=== PATIENT | female | born 1995 | race Caucasian/White ===

== ENCOUNTER 2020-04-15 22:07 | Emergency (ER) | payer OTHER ==
[~2020-04-15] VITALS: Ht 167.6 cm; Wt 68.0 kg
[~2020-04-15 22:07] MED LIST: CYCL5POW MC
[2020-04-15 22:28] VITALS: BP 128/84
[2020-04-15] MEDS ORDERED: METOCLOPRAMIDE HCL 10 MG/2 ML VIAL. ONE (22:44)
[2020-04-15] MEDS ORDERED: IV NORMAL SALINE 1,000ML 1,000 ML IV ONE (22:45)
[2020-04-15] MEDS ORDERED: KETOROLAC 30 MG/ML VIAL. IVP ONE (23:00)
[2020-04-15] MEDS ORDERED: METOCLOPRAMIDE HCL 10 MG/2 ML VIAL. IVP ONE (23:00)
[2020-04-15] MEDS ORDERED: IOHEXOL 300 MG/ML 75 ML VIAL. IV ONE (23:00)
[2020-04-15 23:07] LABS: BASO # 0.1 x10^3/uL (0.0-0.2); BASO % 1 % (0-3); EOS # 0.3 x10^3/uL (0.0-0.7); EOS % 3 % (0-3); HEMATOCRIT 38.3 % (36.0-47.0); HEMOGLOBIN 12.2 g/dL (12.0-15.5); LYMPH # 3.4 x10^3/uL (1.0-4.8); LYMPH % 38 % (24-48); MEAN CORPUSCULAR HEMOGLOBIN 22 pg (25-35); MEAN CORPUSCULAR HGB CONC 32 g/dL (31-37); MEAN CORPUSCULAR VOLUME 69 fL (79-100); MONO # 0.7 x10^3/uL (0.0-1.1); MONO % 8 % (0-9); NEUT # 4.4 x10^3uL (1.8-7.7); NEUT % 50 % (31-73); PLATELET COUNT 210 x10^3/uL (140-400); RED BLOOD COUNT 5.55 x10^6/uL (3.50-5.40); WHITE BLOOD COUNT 8.9 x10^3/uL (4.0-11.0)
[2020-04-15] MEDS ORDERED: CONTRAST GIVEN. MC PRN (23:15)
[2020-04-15 23:17] LABS: CALCIUM 9.4 mg/dL (8.5-10.1); CREATININE 0.9 mg/dL (0.6-1.0); GFR 75.7; POTASSIUM 3.3 mmol/L (3.5-5.1)
[2020-04-15 23:21] LABS: HYPOCHROMIA SLIGHT; MICROCYTOSIS SLIGHT; PLT ESTIMATE ADEQUATE (ADEQUATE)
--- NOTE | 2020-04-15 23:23 | PHYS DOC ---
Past History Past Medical History: Ovarian Cyst Past Surgical History: Tubal ligation, Other Additional Past Surgical Histo: UTERINE ABLATION, WISDOM TEETH, LAPROSCOPIC Alcohol Use: Rarely Drug Use: None Adult General Chief Complaint Chief Complaint: PAIN CONTROL HPI HPI Patient is 25-year-old female who presents to the emergency room complaining of right-sided pelvic pain that is been ongoing for quite some time. She is unable to tell me exactly when it started but states that it has been months. She is seeing her CONDITIONING COACH for this who states there is nothing that they can do about it they are sending her to a specialist at . She states over the last week the pain is been worse than usual. She states that she has known ovarian cysts which her doctors believe is causing her pain. She has had her tubes tied and states there is no way that she could be . She had a lot of pain with defecation today which is a large reason as to why she came in tonight Review of Systems Review of Systems General: Denies fever, chills, sweats, fatigue Eyes: Denies drainage, blurred vision, eye redness HENT: Denies rhinorrhea, sore throat, earache Respiratory: Denies cough, shortness of breath, wheezing Cardiac: Denies edema, palpitations, chest pain GI: Reports pelvic pain and nausea. Denies vomiting, diarrhea, constipation MSK: Denies back pain, neck pain Skin: Denies rash, jaundice Neuro: Denies headache, dizziness Psychiatric: Denies SI/HI Current Medications Current Medications Current Medications Medications (Trade) Dose Ordered Sig/Giana Start Time Stop Time Status Last Admin Dose Admin Info (Do NOT chart on this entry -- for MONITORING) 1 each PRN DAILY PRN 04/15/20 23:15 04/17/20 23:14 Iohexol (Omnipaque 300 Mg/ml) 75 ml 1X ONCE 04/15/20 23:00 04/15/20 23:02 DC Ketorolac Tromethamine (Toradol 30mg Vial) 30 mg 1X ONCE 04/15/20 23:00 04/15/20 23:02 DC 04/15/20 22:51 30 MG Metoclopramide HCl (Reglan Vial) 10 mg STK-MED ONCE 04/15/20 22:44 04/15/20 22:44 DC Sodium Chloride 1,000 ml @ 1,000 mls/hr 1X ONCE 04/15/20 22:45 04/15/20 23:44 04/15/20 22:51 1,000 MLS/HR Allergies Allergies Allergies Coded Allergies Type Severity Reaction Last Updated Verified ondansetron Allergy Unknown MIGRAINES 04/15/20 Yes Physical Exam Physical Exam General: Awake, alert, NAD. Well Nourished, well hydrated. Cooperative HEENT: Atraumatic, EOMI, PERRL, airway patent, moist oral mucosa Neck: Supple, trachea midline Respiratory: CTA bilaterally, normal effort, no wheezing/crackles CV: RRR, no murmur, cap refill <2 GI: Soft, nondistended, nontender, no masses : Declines pelvic exam MSK: No obvious deformities Skin: Warm, dry, intact Neuro: A&O x3, speech NL, sensory and motor grossly intact, no focal deficits Psych: Normal affect, normal mood, not suicidal or homicidal Current Patient Data Vital Signs Vital Signs Date Time Temp Pulse Resp B/P (MAP) Pulse Ox O2 Delivery O2 Flow Rate FiO2 04/15/20 22:28 97.8 85 18 128/84 (99) 98 Room Air Lab Results Laboratory Tests Test 04/15/20 22:55 White Blood Count 8.9 x10^3/uL (4.0-11.0) Red Blood Count 5.55 x10^6/uL (3.50-5.40) H Hemoglobin 12.2 g/dL (12.0-15.5) Hematocrit 38.3 % (36.0-47.0) Mean Corpuscular Volume 69 fL (79-100) L Mean Corpuscular Hemoglobin 22 pg (25-35) L Mean Corpuscular Hemoglobin Concent 32 g/dL (31-37) Red Cell Distribution Width 16.0 % (11.5-14.5) H Platelet Count 210 x10^3/uL (140-400) Neutrophils (%) (Auto) 50 % (31-73) Lymphocytes (%) (Auto) 38 % (24-48) Monocytes (%) (Auto) 8 % (0-9) Eosinophils (%) (Auto) 3 % (0-3) Basophils (%) (Auto) 1 % (0-3) Neutrophils # (Auto) 4.4 x10^3uL (1.8-7.7) Lymphocytes # (Auto) 3.4 x10^3/uL (1.0-4.8) Monocytes # (Auto) 0.7 x10^3/uL (0.0-1.1) Eosinophils # (Auto) 0.3 x10^3/uL (0.0-0.7) Basophils # (Auto) 0.1 x10^3/uL (0.0-0.2) Platelet Estimate Pending Sodium Level 138 mmol/L (136-145) Potassium Level 3.3 mmol/L (3.5-5.1) L Chloride Level 102 mmol/L (98-107) Carbon Dioxide Level 27 mmol/L (21-32) Anion Gap 9 (6-14) Blood Urea Nitrogen 14 mg/dL (7-20) Creatinine 0.9 mg/dL (0.6-1.0) Estimated GFR (Cockcroft-Gault) 75.7 Glucose Level 82 mg/dL (70-99) Calcium Level 9.4 mg/dL (8.5-10.1) EKG EKG [] Radiology/Procedures Radiology/Procedures [] Heart Score Risk Factors: Risk Factors: DM, Current or recent (<one month) smoker, HTN, HLP, family history of CAD, obesity. Risk Scores: Risk Factors: DM, Current or recent (<one month) smoker, HTN, HLP, family history of CAD, obesity. Course & Med Decision Making Course & Med Decision Making Pertinent Labs and Imaging studies reviewed. (See chart for details) Patient is 25-year-old female presents to the emergency room with right pelvic pain that is worse than her typical chronic pain. Given her known history of ovarian cyst will order an ultrasound to rule out torsion. We will also do a pelvic CT to rule out any rectal abnormalities as patient is having pain with defecation. Patient was given Reglan and Toradol for symptoms. Shortly thereafter she requested to leave AGAINST MEDICAL ADVICE. She states that the medicine made her feel anxious and that she would like to go home. Patient has requested to leave AGAINST MEDICAL ADVICE. I have discussed the benefits of staying for a full work up and the patient would like to leave. I discussed the risks of leaving including but not limited to , permenant end-organ damage, worsening of condition and patient stated understanding. Patient signed out against medical advice. Dragon Disclaimer Dragon Disclaimer This electronic medical record was generated, in whole or in part, using a voice recognition dictation system. Departure Departure: Impression: Primary Impression: Pelvic pain Disposition: 07 AMA/BERTA/PAULIE Condition: STABLE Referrals: PCP,UNKNOWN (PCP) LAZ DELACRUZ MD Apr 15, 2020 23:23
== END 2020-04-15 23:18 | disposition left against medical advice (07) ==
LOC: ER 22:07
DX: R10.2 Pelvic and perineal pain (principal); R11.0 Nausea; Z98.51 Tubal ligation status; Z88.8 Allergy status to other drugs, medicaments and biological substances
CPT/HCPCS: 36415; 80048; 85025; 96361; 96374; 96375; 99284; J1885; J2765; J7030

== ENCOUNTER 2020-11-26 22:55 | Emergency (ER) | payer OTHER ==
[~2020-11-26] VITALS: Ht 167.6 cm; Wt 68.0 kg
[2020-11-27 00:40] VITALS: BP 121/74
--- NOTE | 2020-11-27 01:06 | PHYS DOC ---
Past History Past Medical History: Ovarian Cyst Past Surgical History: Tubal ligation, Other Additional Past Surgical Histo: UTERINE ABLATION, WISDOM TEETH, LAPROSCOPIC Alcohol Use: Rarely Drug Use: None General Adult EDM: Chief Complaint: FATIGUE HPI: HPI: ".. I am feeling tired.. I want my iron levels checked...".. I" I don't feel like myself..."" Get tired easy.." Patient is a 25 year old female who presents with above hx and complaints of fatigue. Patient has previous history of anemia and iron deficiency. Patient states her symptoms are similar to prior episodes of anemia. Patient even had history of uterine ablation to control her blood loss from menstruation. Patient has had also previous laparoscopic evaluations for intermittent abdomen pain. Patient has a past history of ovarian cyst. Has had tubal ligation's. Patient in past has had constipation issues. Patient presents tonight with vague symptoms of fatigue and suspect she is anemic again. Patient denies any travel. Patient denies any specific ill contacts. No history of trauma. No history of fever or chills. Review of Systems: Review of Systems: Constitutional: Denies fever or chills Eyes: Denies change in visual acuity HENT: Denies nasal congestion or sore throat Respiratory: Denies cough or shortness of breath Cardiovascular: Denies chest pain or edema GI: Denies abdominal pain, nausea, vomiting, bloody stools or diarrhea : Denies dysuria Musculoskeletal: Denies back pain or joint pain . Complains of generalized fatigue Integument: Denies rash Neurologic: Denies headache, focal weakness or sensory changes Endocrine: Denies polyuria or polydipsia Lymphatic: Denies swollen glands Psychiatric: Denies depression or anxiety Family History: Family History: Noncontributory to presentation Current Medications: Current Meds: See nursing for home meds Allergies: Allergies: Allergies Coded Allergies Type Severity Reaction Last Updated Verified ondansetron Allergy Unknown MIGRAINES 04/15/20 Yes Physical Exam: PE: Constitutional: no acute distress, non-toxic appearance. [] HENT: Normocephalic, atraumatic, bilateral external ears normal, oropharynx moist, no oral exudates, nose normal. [] Eyes: PERRLA, EOMI, conjunctiva normal, no discharge. [] Neck: Normal range of motion, no tenderness, supple, no stridor. [] Cardiovascular:Heart rate regular rhythm, no murmur [] Lungs & Thorax: Bilateral breath sounds equal apex on auscultation [] Abdomen: Bowel sounds normal, soft, no tenderness, no masses, no pulsatile masses. Old surgery scars. Skin: Warm, dry, no erythema, no rash. [] Back: No tenderness, no CVA tenderness. [] Extremities: No tenderness, no cyanosis, no clubbing, ROM intact, no edema. [] Neurologic: Alert and oriented X 3, normal motor function, normal sensory function, no focal deficits noted. [] Psychologic: Affect anxious, judgement normal, mood normal. [] EKG: EKG: [] Radiology/Procedures: Radiology/Procedures: [] Heart Score: C/O Chest Pain: N/A Risk Factors: Risk Factors: DM, Current or recent (<one month) smoker, HTN, HLP, family history of CAD, obesity. Risk Scores: Score 0 - 3: 2.5% MACE over next 6 weeks - Discharge Home Score 4 - 6: 20.3% MACE over next 6 weeks - Admit for Clinical Observation Score 7 - 10: 72.7% MACE over next 6 weeks - Early Invasive Strategies Course & Med Decision Making: Course & Med Decision Making Pertinent Labs and Imaging studies reviewed. (See chart for details) Patient push high potassium foods. Patient follow-up with repeat potassium level. Patient push fruit juices. Patient return if any concerns. Patient 10- year her iron supplementation. Follow-up primary care. Review ED work-up. Impression: 1. Hypokalemia 2.8 2. Anemia hemoglobin 11.5 with microcytosis and hypochromia 3. Drug screen positive for marijuana [] Dragon Disclaimer: Dragon Disclaimer: This electronic medical record was generated, in whole or in part, using a voice recognition dictation system. Departure Departure: Referrals: PCP,UNKNOWN (PCP) Dragon Disclaimer This chart was dictated in whole or in part using Voice Recognition software in a busy, high-work load, and often noisy Emergency Department environment. It may contain unintended and wholly unrecognized errors or omissions. AMANDO MICHAEL MD Nov 27, 2020 01:06
[2020-11-27] MEDS ORDERED: POTASSIUM CHLORIDE 20 MEQ TABLET.ER. PO ONE (02:22)
[2020-11-27] MEDS ORDERED: MAGNESIUM HYDROXIDE 2,400 MG/30 ML ORAL.SUSP. ONE (02:22)
[2020-11-27 08:09] LABS: BILIRUBIN,URINE NEG (NEG); CLARITY,URINE CLEAR; COLOR,URINE YELLOW; GLUCOSE,URINE NEG (NEG); NITRITE,URINE NEG (NEG); RBC,URINE 0 /HPF (0-2)
[2020-11-27 08:10] LABS: BACTERIA,URINE FEW /HPF (0-FEW); SQUAMOUS EPITHELIAL CELL,UR FEW /LPF; WBC,URINE OCC /HPF (0-4)
[2020-11-27 08:12] LABS: U PREG PATIENT NEGATIVE (NEG)
[2020-11-27 08:16] LABS: AMPHETAMINE/METHAMPHETAMINE NEG (NEG); BARBITURATES NEG (NEG); BENZODIAZEPINES NEG (NEG); CANNABINOIDS POS (NEG); COCAINE NEG (NEG); METHADONE NEG (NEG); OPIATES NEG (NEG); PHENCYCLIDINE NEG (NEG)
[2020-11-27 09:07] LABS: BASO % 0 % (0-3); EOS % 0 % (0-3); HEMATOCRIT 44.1 % (36.0-47.0); HEMOGLOBIN 14.7 g/dL (12.0-15.5); LYMPH # 0.9 x10^3/uL (1.0-4.8); LYMPH % 5 % (24-48); MEAN CORPUSCULAR HEMOGLOBIN 30 pg (25-35); MEAN CORPUSCULAR HGB CONC 33 g/dL (31-37); MEAN CORPUSCULAR VOLUME 90 fL (79-100); MONO # 1.2 x10^3/uL (0.0-1.1); MONO % 7 % (0-9); NEUT # 15.4 x10^3uL (1.8-7.7); NEUT % 87 % (31-73); PLATELET COUNT 294 x10^3/uL (140-400); RED BLOOD COUNT 4.89 x10^6/uL (3.50-5.40); RED CELL DISTRIBUTION WIDTH 13.1 % (11.5-14.5); WHITE BLOOD COUNT 17.6 x10^3/uL (4.0-11.0)
[2020-11-27 10:11] LABS: ALBUMIN 4.2 g/dL (3.4-5.0); CALCIUM 8.9 mg/dL (8.5-10.1); CREATININE 0.8 mg/dL (0.6-1.0); DIRECT BILIRUBIN 0.2 mg/dL (0.0-0.2); GFR 86.7; TOTAL BILIRUBIN 0.8 mg/dL (0.2-1.0); TOTAL PROTEIN 7.7 g/dL (6.4-8.2)
[2020-11-27 10:15] LABS: POTASSIUM 2.8 mmol/L (3.5-5.1)
[2020-11-27 10:57] LABS: PLT ESTIMATE ADEQUATE (ADEQUATE)
[2020-11-27 10:58] LABS: HYPOCHROMIA MOD; MICROCYTOSIS MOD
== END 2020-11-27 02:51 | disposition home or self-care (01) ==
LOC: ER 22:55
DX: E87.6 Hypokalemia (principal); D50.9 Iron deficiency anemia, unspecified; Z98.51 Tubal ligation status; Z88.8 Allergy status to other drugs, medicaments and biological substances
CPT/HCPCS: 36415; 80048; 80076; 80307; 81001; 81025; 85025; 99283

== ENCOUNTER 2020-12-11 21:47 | Emergency (ER) | payer OTHER ==
[~2020-12-11] VITALS: Ht 167.6 cm; Wt 68.0 kg
[2020-12-11 22:37] LABS: BASO # 0.1 x10^3/uL (0.0-0.2); BASO % 1 % (0-3); EOS # 0.2 x10^3/uL (0.0-0.7); EOS % 2 % (0-3); HEMATOCRIT 36.5 % (36.0-47.0); HEMOGLOBIN 11.6 g/dL (12.0-15.5); LYMPH # 2.6 x10^3/uL (1.0-4.8); LYMPH % 30 % (24-48); MEAN CORPUSCULAR HEMOGLOBIN 22 pg (25-35); MEAN CORPUSCULAR HGB CONC 32 g/dL (31-37); MEAN CORPUSCULAR VOLUME 70 fL (79-100); MONO # 0.6 x10^3/uL (0.0-1.1); MONO % 7 % (0-9); NEUT # 5.3 x10^3uL (1.8-7.7); NEUT % 60 % (31-73); PLATELET COUNT 209 x10^3/uL (140-400); RED BLOOD COUNT 5.22 x10^6/uL (3.50-5.40); RED CELL DISTRIBUTION WIDTH 17.1 % (11.5-14.5); WHITE BLOOD COUNT 8.8 x10^3/uL (4.0-11.0)
[2020-12-11 22:49] LABS: ALBUMIN 4.1 g/dL (3.4-5.0); ALBUMIN/GLOBULIN RATIO 1.3 (1.0-1.7); CALCIUM 9.2 mg/dL (8.5-10.1); CREATININE 0.7 mg/dL (0.6-1.0); GFR 101.1; MAGNESIUM 2.1 mg/dL (1.8-2.4); POTASSIUM 3.7 mmol/L (3.5-5.1); TOTAL BILIRUBIN 0.5 mg/dL (0.2-1.0); TOTAL PROTEIN 7.2 g/dL (6.4-8.2)
[2020-12-11 22:55] LABS: BACTERIA,URINE 0 /HPF (0-FEW); BILIRUBIN,URINE NEG (NEG); CLARITY,URINE CLEAR; COLOR,URINE YELLOW; GLUCOSE,URINE NEG (NEG); NITRITE,URINE NEG (NEG); RBC,URINE 0 /HPF (0-2); SQUAMOUS EPITHELIAL CELL,UR FEW /LPF; WBC,URINE RARE /HPF (0-4)
[2020-12-11 22:57] LABS: HYPOCHROMIA SLIGHT; MICROCYTOSIS MOD; PLT ESTIMATE ADEQUATE (ADEQUATE)
[2020-12-11 22:58] LABS: ANISOCYTOSIS SLIGHT
--- NOTE | 2020-12-11 23:00 | RAD ---
XR CHEST 1V History: Reason: Chest pain, dizziness, cardiac workup / Spl. Instructions: / History: Comparison: None. Findings: No consolidation or pleural effusion. Normal heart size. No pneumothorax. Impression: 1. No acute cardiopulmonary process. Electronically signed by: Forest Lane DO (12/11/2020 10:58 PM) [facility]
[2020-12-11 23:40] VITALS: BP 120/73
--- NOTE | 2020-12-12 00:04 | PHYS DOC ---
Past History Past Medical History: Anemia, Ovarian Cyst Past Surgical History: Tubal ligation, Other Additional Past Surgical Histo: UTERINE ABLATION, WISDOM TEETH, LAPROSCOPIC Alcohol Use: Rarely Drug Use: None Adult General Chief Complaint Chief Complaint: MULTIPLE COMPLAINTS HPI HPI Patient is a 25-year-old female with a past medical history significant for iron deficiency anemia on iron who presents with a chief complaint of feeling fatigued and having some body aches. States she felt like this a few weeks ago when she came into the emergency department and was diagnosed with anemia. Denies any syncope or dizziness but stated she did have some lightheadedness earlier but now is gone. Denies recent traumas, illnesses, fevers, known ill contacts, chest pain, dyspnea on exertion, abdominal pain, nausea, vomiting, dysuria, hematuria, blood in the stool. Review of Systems Review of Systems Review of systems otherwise unremarkable except noted in HPI Allergies Allergies Allergies Coded Allergies Type Severity Reaction Last Updated Verified ondansetron Allergy Unknown MIGRAINES 04/15/20 Yes Physical Exam Physical Exam Constitutional: Well developed, well nourished, no acute distress, non-toxic appearance. [] HENT: Normocephalic, atraumatic, bilateral external ears normal, oropharynx moist, no oral exudates, nose normal. [] Eyes: PERRLA, EOMI, conjunctiva normal, no discharge. [] Neck: Normal range of motion, no tenderness, supple, no stridor. [] Cardiovascular:Heart rate regular rhythm, no murmur [] Lungs & Thorax: Bilateral breath sounds clear to auscultation [] Abdomen: Bowel sounds normal, soft, no tenderness, no masses, no pulsatile masses. [] Skin: Warm, dry, no erythema, no rash. [] Back: No tenderness, no CVA tenderness. [] Extremities: No tenderness, no cyanosis, no clubbing, ROM intact, no edema. [] Neurologic: Alert and oriented X 3, normal motor function, normal sensory function, no focal deficits noted. [] Psychologic: Affect normal, judgement normal, mood normal. [] Current Patient Data Vital Signs Vital Signs Date Time Temp Pulse Resp B/P (MAP) Pulse Ox O2 Delivery O2 Flow Rate FiO2 12/11/20 21:47 98.2 76 18 127/79 (95) 99 Room Air Lab Results Laboratory Tests Test 12/11/20 22:15 12/11/20 22:21 White Blood Count 8.8 x10^3/uL (4.0-11.0) Red Blood Count 5.22 x10^6/uL (3.50-5.40) Hemoglobin 11.6 g/dL (12.0-15.5) L Hematocrit 36.5 % (36.0-47.0) Mean Corpuscular Volume 70 fL (79-100) L Mean Corpuscular Hemoglobin 22 pg (25-35) L Mean Corpuscular Hemoglobin Concent 32 g/dL (31-37) Red Cell Distribution Width 17.1 % (11.5-14.5) H Platelet Count 209 x10^3/uL (140-400) Neutrophils (%) (Auto) 60 % (31-73) Lymphocytes (%) (Auto) 30 % (24-48) Monocytes (%) (Auto) 7 % (0-9) Eosinophils (%) (Auto) 2 % (0-3) Basophils (%) (Auto) 1 % (0-3) Neutrophils # (Auto) 5.3 x10^3uL (1.8-7.7) Lymphocytes # (Auto) 2.6 x10^3/uL (1.0-4.8) Monocytes # (Auto) 0.6 x10^3/uL (0.0-1.1) Eosinophils # (Auto) 0.2 x10^3/uL (0.0-0.7) Basophils # (Auto) 0.1 x10^3/uL (0.0-0.2) Platelet Estimate Adequate (ADEQUATE) Hypochromasia Slight Poikilocytosis Anisocytosis Slight Microcytosis Mod Urine Collection Type Unknown Urine Color Yellow Urine Clarity Clear Urine pH 6.5 Urine Specific [place] 1.025 Urine Protein Neg (NEG-TRACE) Urine Glucose (UA) Neg mg/dL (NEG) Urine Ketones (Stick) Neg mg/dL (NEG) Urine Blood Neg (NEG) Urine Nitrite Neg (NEG) Urine Bilirubin Neg (NEG) Urine Urobilinogen Dipstick 1.0 mg/dL (0.2 mg/dL) Urine Leukocyte Esterase Neg (NEG) Urine RBC 0 /HPF (0-2) Urine WBC Rare /HPF (0-4) Urine Squamous Epithelial Cells Few /LPF Urine Bacteria 0 /HPF (0-FEW) Sodium Level 143 mmol/L (136-145) Potassium Level 3.7 mmol/L (3.5-5.1) Chloride Level 106 mmol/L (98-107) Carbon Dioxide Level 31 mmol/L (21-32) Anion Gap 6 (6-14) Blood Urea Nitrogen 8 mg/dL (7-20) Creatinine 0.7 mg/dL (0.6-1.0) Estimated GFR (Cockcroft-Gault) 101.1 BUN/Creatinine Ratio 11 (6-20) Glucose Level 87 mg/dL (70-99) Calcium Level 9.2 mg/dL (8.5-10.1) Magnesium Level 2.1 mg/dL (1.8-2.4) Total Bilirubin 0.5 mg/dL (0.2-1.0) Aspartate Amino Transferase (AST) 11 U/L (15-37) L Alanine Aminotransferase (ALT) 18 U/L (14-59) Alkaline Phosphatase 76 U/L (46-116) Troponin I Quantitative < 0.017 ng/mL (0-0.055) Total Protein 7.2 g/dL (6.4-8.2) Albumin 4.1 g/dL (3.4-5.0) Albumin/Globulin Ratio 1.3 (1.0-1.7) POC Urine HCG, Qualitative hcg negative (Negative) EKG EKG Heart rate of 82, QRS of 70, QTc 416, no STEMI [] Radiology/Procedures Radiology/Procedures [] History: Reason: Chest pain, dizziness, cardiac workup / Spl. Instructions: / History: Comparison: None. Findings: No consolidation or pleural effusion. Normal heart size. No pneumothorax. Impression: 1. No acute cardiopulmonary process. Electronically signed by: Forest Lane DO (12/11/2020 10:58 PM) [facility] Heart Score C/O Chest Pain: No Risk Factors: Risk Factors: DM, Current or recent (<one month) smoker, HTN, HLP, family history of CAD, obesity. Risk Scores: Risk Factors: DM, Current or recent (<one month) smoker, HTN, HLP, family history of CAD, obesity. Course & Med Decision Making Course & Med Decision Making Patient is a 25-year-old female who presents with fatigue and body aches as well as an episode of lightheadedness earlier in the day Vital signs reassuring. Physical exam noted above. Patient asymptomatic in the ED. Chest x-ray not concerning. EKG noted above and normal with no STEMI. Laboratory analysis better than last visit however hemoglobin did drop to 11 6 with MCV of 70. Patient states she had been taking her iron over the last week like she supposed to. Discussed all findings with family and gave recommendations of cease smoking cigarettes, take her iron pills as prescribed and begin an exercise routine if she wants to become healthier and lose weight. Given contact information for local primary care physician here in [facility] as requested. Advised to come back to the ED with new or concerning symptoms as discussed. Family grateful, verbalized understanding and agreed with plan of discharge. [] Dragon Disclaimer Dragon Disclaimer This electronic medical record was generated, in whole or in part, using a voice recognition dictation system. Departure Departure: Impression: Primary Impression: Fatigue Additional Impression: Anemia Disposition: HOME / SELF CARE / HOMELESS Condition: GOOD Referrals: CARLOS RIOJAS MD Patient Instructions: Anemia, FAQs, Chronic Fatigue Syndrome Additional Instructions: Thank you for coming into the emergency department tonight and allowing us to take care of you. Please read all the attached information carefully to go over what we discussed. You are given a local primary care physician contact number. Please call in the morning to establish care and set up a follow-up visit to discuss your ED visit and further needs. As discussed, please take all your medicines including your iron as prescribed, cease smoking tobacco as soon as possible and begin a light exercise program and eat appropriately since you are wanting to lose some weight. Please also discuss these issues with your primary care physician as they can help you through this process. Please come back to the emergency department immediately with new or concerning symptoms as discussed. Problem Qualifiers SHAI CALLOWAY MD Dec 12, 2020 00:04
--- NOTE | 2020-12-12 04:17 | EKG ---
[address] [address] Test Date: 2020-12-11 Test Time: 22:36:03 Pat Name: KIMBERLY BRADY Department: Room: Gender: F Car Icer: LUKE : 1995 Requested By: SHAI CALLOWAY Order Number: [id number] Reading MD: Measurements Intervals [place] Rate: 82 P: 52 ND: 134 QRS: 31 QRSD: 78 T: 14 QT: 354 QTc: 416 Interpretive Statements SINUS RHYTHM NORMAL ECG RI6.02 No previous ECG available for comparison
== END 2020-12-12 00:10 | disposition home or self-care (01) ==
LOC: ER 21:47
DX: D64.9 Anemia, unspecified (principal); R53.83 Other fatigue; R42 Dizziness and giddiness; Z88.8 Allergy status to other drugs, medicaments and biological substances
CPT/HCPCS: 36415; 71045; 80053; 81001; 81025; 83735; 84484; 85025; 93005; 99285

== ENCOUNTER 2020-12-24 00:03 | Emergency (ER) | payer OTHER ==
[2020-12-24] MEDS ORDERED: ALBU2.5V8 IH (00:25)
--- NOTE | 2020-12-24 00:26 | PHYS DOC ---
Past History Past Medical History: Anemia, Ovarian Cyst Past Surgical History: Tubal ligation, Other Additional Past Surgical Histo: UTERINE ABLATION, WISDOM TEETH, LAPROSCOPIC Alcohol Use: Rarely Drug Use: None Adult General HPI HPI Patient is an otherwise healthy 25-year-old female who presents with a chief complaint of congestion in her chest for couple days. Denies any recent traumas, travels, illnesses, fevers chest pain, abdominal pain, nausea, vomiting, dysuria, hematuria or blood in the stool. States she is currently smoking cigarettes and has been for about 10 years but is down to about 5 cigarettes a day. States that she was told that she had asthma as a child but it went away. Denies any other alcohol or drug use. Review of Systems Review of Systems Review of systems otherwise unremarkable except noted in HPI Allergies Allergies Allergies Coded Allergies Type Severity Reaction Last Updated Verified ondansetron Allergy Unknown MIGRAINES 04/15/20 Yes Physical Exam Physical Exam Constitutional: Well developed, well nourished, no acute distress, non-toxic felipe earance. [] HENT: Normocephalic, atraumatic, bilateral external ears normal, oropharynx moist, no oral exudates, nose normal. [] Eyes: conjunctiva normal, no discharge. [] Neck: Normal range of motion, no tenderness, supple, no stridor. [] Cardiovascular:Heart rate regular rhythm, no murmur [] Lungs & Thorax: Bilateral breath sounds with very mild end expiratory wheeze, good air movement Abdomen: soft, no tenderness, no masses, no pulsatile masses. [] Neurologic: Alert and oriented X 3, no focal deficits noted. [] Psychologic: Affect normal, judgement normal, mood normal. [] EKG EKG EKG with a rate of 79, QRS of 86, QTc of 441, no STEMI. [] Radiology/Procedures Radiology/Procedures [] Heart Score C/O Chest Pain: No Risk Factors: Risk Factors: DM, Current or recent (<one month) smoker, HTN, HLP, family history of CAD, obesity. Risk Scores: Risk Factors: DM, Current or recent (<one month) smoker, HTN, HLP, family history of CAD, obesity. Course & Med Decision Making Course & Med Decision Making Patient is a 25-year-old female who presents with congestion and mild cough for the last couple days Vital signs not concerning. Physical exam noted above. EKG noted above and not concerning. Given steroids and breathing treatment for wheeze. Chest x-ray not concerning. Discussed all findings with patient. Advised to cease tobacco use. Advised to follow-up in the morning with primary care physician to discuss ED visit and need for pulmonary function test/asthma treatment. Gave strict return precautions to the ED. Patient grateful, verbalized unde rstanding and agreed with plan of discharge. [] Dragon Disclaimer Dragon Disclaimer This electronic medical record was generated, in whole or in part, using a voice recognition dictation system. Departure Departure: Impression: Primary Impression: Wheezing Disposition: HOME / SELF CARE / HOMELESS Condition: GOOD Referrals: CARLOS RIOJAS MD Patient Instructions: Asthma, Acute Bronchospasm, Cigar Smoking and Cancer Additional Instructions: Thank you for coming into the emergency department tonight and allowing us to take care of you. Please read all of the attached information very carefully to go back over what we discussed. Please cease using tobacco products as this could exacerbate and/or initiate an asthma exacerbation if indeed you do have asthma. He did have some wheeze on exam today which could be part of a low end asthma exacerbation. Please call your primary care physician first thing in the morning or a primary care physician at the number provided or in the packet of free resources available to establish care. Please come back to the ED with new or concerning symptoms as discussed. Scripts Albuterol Sulfate (PROAIR HFA INHALER) 8.5 Gm Hfa.aer.ad 2 PUFF IH PRN Q4-6HRS PRN for wheezing for 21 Days, #1 INHALER 0 Refills Prov: SHAI CALLOWAY MD 12/24/20 SHAI CALLOWAY MD Dec 24, 2020 00:26
[2020-12-24] MEDS ORDERED: ALBUTEROL SULFATE 8GM INHALER. INH ONE (01:00)
[2020-12-24] MEDS ORDERED: DEXAMETHASONE 4 MG TABLET PO ONE (01:00)
[2020-12-24] MEDS ORDERED: HYDROcodone/APAP 5/325MG 1 TAB TABLET PO ONE (01:30)
[2020-12-24 01:52] VITALS: BP 141/91
--- NOTE | 2020-12-24 06:37 | EKG ---
[address] [address] Test Date: 2020-12-24 Test Time: 00:16:40 Pat Name: KIMBERLY BRADY Department: Room: Gender: F Caregiver Services Home: : 1995 Requested By: SHAI CALLOWAY Order Number: [id number] Reading MD: Ehsan Peters Measurements Intervals [place] Rate: 78 P: 129 MS: 128 QRS: 155 QRSD: 76 T: 162 QT: 344 QTc: 395 Interpretive Statements SINUS RHYTHM ABNORMAL RIGHT AXIS DEVIATION QRS(T) CONTOUR ABNORMALITY CONSISTENT WITH HIGH LATERAL MYOCARDIAL DAMAGE ABNORMAL ECG Electronically Signed On 12-25-2020 11:53:25 CDT by Ehsan Peters
== END 2020-12-24 01:56 | disposition home or self-care (01) ==
LOC: ER 00:03
DX: R06.2 Wheezing (principal); R09.81 Nasal congestion; F17.210 Nicotine dependence, cigarettes, uncomplicated; Z86.2 Personal history of diseases of the blood and blood-forming organs and certain disorders involving the immune mechanism; Z88.8 Allergy status to other drugs, medicaments and biological substances
CPT/HCPCS: 93005; 94640; 99283; J8540; 94664

== ENCOUNTER 2021-03-03 17:13 | Emergency (ER) | payer OTHER ==
[~2021-03-03] VITALS: Ht 167.6 cm; Wt 71.6 kg
[~2021-03-03 17:13] MED LIST changes: +ALBU2.5V8 IH
--- NOTE | 2021-03-03 17:52 | EKG ---
[address] [address] Test Date: 2021-03-03 Test Time: 17:22:24 Pat Name: KIMBERLY BRADY Department: Room: Gender: F Qa Test Analyst: : 1995 Requested By: DANIELA ARGUELLO Order Number: [id number] Reading MD: Ehsan Peters Measurements Intervals [place] Rate: 68 P: 58 PA: 138 QRS: 25 QRSD: 78 T: 22 QT: 370 QTc: 394 Interpretive Statements SINUS RHYTHM NORMAL ECG RI6.02 Electronically Signed On 03-04-2021 13:03:21 CDT by Ehsan Peters
[2021-03-03] MEDS ORDERED: IV NORMAL SALINE 1,000ML 1,000 ML IV ONE (18:30)
--- NOTE | 2021-03-03 18:39 | PHYS DOC ---
Past History Past Medical History: Anemia, Ovarian Cyst (PRABHA SEBASTIAN APRN) Past Surgical History: Tubal ligation, Other Additional Past Surgical Histo: ABLATION, CYST REMOVAL FROM OVARIES (PRABHA SEBASTIAN APRN) Alcohol Use: Occasionally Drug Use: None (PRABHA SEBASTIAN APRN) General Adult EDM: Chief Complaint: CHEST PAIN HPI: HPI: Patient is a 26-year-old female who presents with chest pain, dizziness, short ness of breath, nausea. Patient states that pain is worse with deep breathing. Denies nausea/vomiting. Denies fever or recent illness. Denies cough. patient states that she has a history of asthma and anemia (PRABHA SEBASTIAN APRN) Review of Systems: Review of Systems: Constitutional: Denies fever or chills Eyes: Denies change in visual acuity HENT: Denies nasal congestion or sore throat Respiratory: Reports shortness of breath Cardiovascular: Reports chest pain GI: Denies abdominal pain, nausea, vomiting, bloody stools or diarrhea : Denies dysuria Musculoskeletal: Denies back pain or joint pain Integument: Denies rash Neurologic: Denies headache, focal weakness or sensory changes Endocrine: Denies polyuria or polydipsia Lymphatic: Denies swollen glands Psychiatric: Denies depression or anxiety (PRABHA SEBASTIAN APRN) Current Medications: Current Meds: Current Medications Medications (Trade) Dose Ordered Sig/Giana Start Time Stop Time Status Last Admin Dose Admin Sodium Chloride 1,000 ml @ 1,000 mls/hr 1X ONCE 03/03/21 18:30 03/03/21 19:29 UNV 03/03/21 18:22 1,000 MLS/HR (PRABHA SEBASTIAN APRN) Allergies: Allergies: Allergies Coded Allergies Type Severity Reaction Last Updated Verified ondansetron Allergy Unknown MIGRAINES 03/03/21 Yes (PRABHA SEBASTIAN APRN) Physical Exam: PE: Constitutional: Well developed, well nourished, no acute distress, non-toxic appearance. [] HENT: Normocephalic, atraumatic, bilateral external ears normal, oropharynx moist, no oral exudates, nose normal. [] Eyes: PERRLA, EOMI, conjunctiva normal, no discharge. [] Neck: Normal range of motion, no tenderness, supple, no stridor. [] Cardiovascular:Heart rate regular rhythm, no murmur [] Lungs & Thorax: Bilateral breath sounds clear to auscultation [] Abdomen: Bowel sounds normal, soft, no tenderness, no masses, no pulsatile masses. [] Skin: Warm, dry, no erythema, no rash. [] Back: No tenderness, no CVA tenderness. [] Extremities: No tenderness, no cyanosis, no clubbing, ROM intact, no edema. [] Neurologic: Alert and oriented X 3, normal motor function, normal sensory function, no focal deficits noted. [] Psychologic: Affect normal, judgement normal, mood normal. [] (PRABHA SEBASTIAN APRN) Current Patient Data: Vital Signs: Vital Signs Date Time Temp Pulse Resp B/P (MAP) Pulse Ox O2 Delivery O2 Flow Rate FiO2 03/03/21 18:18 68 18 108/70 (83) 100 Room Air 03/03/21 17:23 98.4 (PRABHA SEBASTIAN APRN) EKG: EKG: [] (PRABHA SEBASTIAN APRN) Radiology/Procedures: Radiology/Procedures: [] (PRABHA SEBASTIAN APRN) Impressions: EXAM: CHEST 1 VIEW History: Chest pain, asthma COMPARISON: 12/11/2020 TECHNIQUE: Single portable radiograph of the chest FINDINGS: The cardiac silhouette is unremarkable. The lungs are clear bilaterally. The costophrenic sulci are clear and well demarcated. IMPRESSION: No radiographic evidence of an acute cardiopulmonary process. Electronically signed by: Sherman Argueta MD (03/03/2021 7:22 PM) [id number] DICTATED AND SIGNED BY: SHERMAN ARGUETA MD DATE: 03/03/211919 CC: PRABHA SEBASTIAN APRN; PCP,NO ~MTH0 0 (ROSEANN LAWSON DO) Heart Score: C/O Chest Pain: Yes HEART Score for Chest Pain: HEART Score for Chest Pain Response (Comments) Value History Slighlty/Non-Suspicious 0 ECG Normal 0 Age < 45 0 Risk Factors No Risk Factors 0 Total 0 Risk Factors: Risk Factors: DM, Current or recent (<one month) smoker, HTN, HLP, family history of CAD, obesity. Risk Scores: Score 0 - 3: 2.5% MACE over next 6 weeks - Discharge Home Score 4 - 6: 20.3% MACE over next 6 weeks - Admit for Clinical Observation Score 7 - 10: 72.7% MACE over next 6 weeks - Early Invasive Strategies (PRABHA SEBASTIAN APRN) C/O Chest Pain: N/A (ROSEANN LAWSON DO) Course & Med Decision Making: Course & Med Decision Making Pertinent Labs and Imaging studies reviewed. (See chart for details) [] 26-year-old female presents with chest pain, dizziness and shortness of breath. Patient states that chest pain started yesterday. Patient states today she was at home and was feeling short of breath and all of a sudden felt very dizzy. EKG shows sinus rhythm. (PRABHA SEBASTIAN APRN) Course & Med Decision Making The patient's chest x-ray is unremarkable. Her EKG is unremarkable. Labs are unremarkable. Troponin is negative. Urinalysis is negative for infection. This does not appear to be cardiopulmonary in nature. The patient stable for discharge at this time. (ROSEANN LAWSON DO) Dragon Disclaimer: Dragon Disclaimer: This electronic medical record was generated, in whole or in part, using a voice recognition dictation system. (PRABHA SEBASTIAN APRN) Departure Departure: Impression: Primary Impression: Pleuritic chest pain Disposition: HOME / SELF CARE / HOMELESS Condition: STABLE Referrals: PCP,CALVIN (PCP) Patient Instructions: Chest Pain (Nonspecific), [id number] PRABHA SEBASTIAN APRN Mar 03, 2021 18:39 ROSEANN LAWSON DO Mar 03, 2021 19:34
[2021-03-03] MEDS ORDERED: DEXAMETHASONE SOD PHOS 10 MG/ML VIAL. IVP ONE (18:45)
[2021-03-03 18:50] LABS: CALCIUM 8.9 mg/dL (8.5-10.1); CREATININE 0.6 mg/dL (0.6-1.0); GFR 119.9; POTASSIUM 3.5 mmol/L (3.5-5.1)
[2021-03-03 18:55] LABS: ALBUMIN 4.1 g/dL (3.4-5.0); ALBUMIN/GLOBULIN RATIO 1.2 (1.0-1.7); TOTAL BILIRUBIN 0.6 mg/dL (0.2-1.0); TOTAL PROTEIN 7.4 g/dL (6.4-8.2)
[2021-03-03 19:05] LABS: U PREG PATIENT NEGATIVE (NEG)
[2021-03-03 19:11] LABS: BASO % 1 % (0-3); EOS # 0.3 x10^3/uL (0.0-0.7); EOS % 3 % (0-3); LYMPH # 2.8 x10^3/uL (1.0-4.8); LYMPH % 30 % (24-48); MEAN CORPUSCULAR HEMOGLOBIN 22 pg (25-35); MEAN CORPUSCULAR HGB CONC 32 g/dL (31-37); MEAN CORPUSCULAR VOLUME 70 fL (79-100); MONO # 0.5 x10^3/uL (0.0-1.1); MONO % 6 % (0-9); NEUT # 5.9 x10^3uL (1.8-7.7); NEUT % 61 % (31-73); PLATELET COUNT 222 x10^3/uL (140-400); RED BLOOD COUNT 5.41 x10^6/uL (3.50-5.40); RED CELL DISTRIBUTION WIDTH 15.2 % (11.5-14.5); WHITE BLOOD COUNT 9.6 x10^3/uL (4.0-11.0)
[2021-03-03 19:20] LABS: BACTERIA,URINE 0 /HPF (0-FEW); BILIRUBIN,URINE NEG (NEG); CLARITY,URINE CLEAR; COLOR,URINE YELLOW; GLUCOSE,URINE NEG (NEG); NITRITE,URINE NEG (NEG); RBC,URINE 0 /HPF (0-2); UROBILINOGEN,URINE 0.2 mg/dL (0.2 mg/dL); WBC,URINE 0 /HPF (0-4)
--- NOTE | 2021-03-03 19:24 | RAD ---
EXAM: CHEST 1 VIEW History: Chest pain, asthma COMPARISON: 12/11/2020 TECHNIQUE: Single portable radiograph of the chest FINDINGS: The cardiac silhouette is unremarkable. The lungs are clear bilaterally. The costophrenic sulci are clear and well demarcated. IMPRESSION: No radiographic evidence of an acute cardiopulmonary process. Electronically signed by: Sherman Argueta MD (03/03/2021 7:22 PM) [id number]
[2021-03-03] MEDS ORDERED: PANTOPRAZOLE IV 40 MG VIAL. IVP ONE (19:45)
[2021-03-03] MEDS ORDERED: FAMOTIDINE 20 MG/2 ML VIAL IVP ONE (19:45)
[2021-03-03 19:56] VITALS: BP 123/96
[2021-03-03 20:15] LABS: PLT ESTIMATE ADEQUATE (ADEQUATE)
== END 2021-03-03 19:56 | disposition home or self-care (01) ==
LOC: ER 17:13
DX: R07.81 Pleurodynia (principal); R42 Dizziness and giddiness; Z86.2 Personal history of diseases of the blood and blood-forming organs and certain disorders involving the immune mechanism; Z88.8 Allergy status to other drugs, medicaments and biological substances
CPT/HCPCS: 36415; 71045; 80053; 81001; 81025; 84484; 85025; 93005; 96361; 96374; 96375; 99285; C9113; J1100; J3490; J7030

== ENCOUNTER 2021-07-28 16:54 | Emergency (ER) | payer OTHER ==
[~2021-07-28] VITALS: Ht 170.2 cm; Wt 70.0 kg
[2021-07-28 17:01] VITALS: BP 124/76
[2021-07-28] MEDS ORDERED: ORPHENADRINE CITRATE 60 MG/2 ML VIAL. IM ONE (17:15)
[2021-07-28] MEDS ORDERED: KETOROLAC 60 MG/2 ML VIAL. IM ONE (17:15)
--- NOTE | 2021-07-28 17:19 | PHYS DOC ---
Past History Past Medical History: Anemia, Ovarian Cyst (LOBITO FITZGERALD APRN) Past Surgical History: Tubal ligation, Other Additional Past Surgical Histo: ABLATION, CYST REMOVAL FROM OVARIES (LOBITO FITZGERALD APRN) Alcohol Use: Occasionally Drug Use: None (LOBITO FITZGERALD APRN) General Adult EDM: Chief Complaint: SHOULDER INJURY HPI: HPI: Patient is a 26-year-old female who presents to the emergency department today for left shoulder pain that occurred yesterday afternoon carrying heavy grocery bags. Patient reports that the pain originates in her shoulder along her clavicle anterior shoulder joint and occasionally radiates down her arm. She describes the pain as a sharp and burning pain. She rates it 8 out of 10. She has been taking ibuprofen at home. She denies any falls or injuries, increased sensation or decreased range of motion to her shoulder but does report pain with range of motion. (LOBITO FITZGERALD APRN) Review of Systems: Review of Systems: Constitutional: negative unless reported in HPI Eyes: negative unless reported in HPI HENT: negative unless reported in HPI Respiratory: negative unless reported in HPI Cardiovascular: negative unless reported in HPI GI: negative unless reported in HPI : negative unless reported in HPI Musculoskeletal: negative unless reported in HPI Integument: negative unless reported in HPI Neurologic: negative unless reported in HPI Endocrine: negative unless reported in HPI Lymphatic: negative unless reported in HPI Psychiatric: negative unless reported in HPI (LOBITO FITZGERALD APRN) Allergies: Allergies: Allergies Coded Allergies Type Severity Reaction Last Updated Verified ondansetron Allergy Unknown MIGRAINES 03/03/21 Yes (LOBITO FITZGERALD APRN) Physical Exam: PE: Constitutional: Well developed, well nourished, no acute distress, non-toxic appearance. [] HENT: Normocephalic, atraumatic, bilateral external ears normal, oropharynx moist, no oral exudates, nose normal. [] Eyes: PERRL, EOMI, conjunctiva normal, no discharge. [] Neck: Normal range of motion, no tenderness, supple, no stridor. [] Cardiovascular normal peripheral perfusion Lungs & Thorax: Normal work of breathing, no tachypnea Abdomen: Soft and flat Skin: Warm, dry, no erythema, no rash. [] Back: No tenderness, normal range of motion Extremities: No tenderness, no cyanosis, no clubbing, ROM intact, no edema. [] Left shoulder: No obvious deformity or wounds, no crepitus, range of motion intact, neuro intact, no pain with palpation of clavicle and no obvious deformity of the clavicle, no pain with palpation to elbow or wrist joint,pain with palpation of AC joint and biceps tendon. Neurologic: Alert and oriented X 3, normal motor function, normal sensory function, no focal deficits noted. [] Psychologic: Affect normal, judgement normal, mood normal. [] (LOBITO FITZGERALD APRN) EKG: EKG: [] (LOBITO FITZGERALD APRN) Radiology/Procedures: Radiology/Procedures: []PROCEDURE: SHOULDER 2+V LEFT Exam: Left shoulder 3 views INDICATION: Shoulder pain, TECHNIQUE: Frontal view of the left shoulder with internal and external rotation and transscapular Y views Comparisons: None FINDINGS: Bone mineralization is normal. No acute or healed fractures. Soft tissues are unremarkable. Joint spaces are well-maintained. IMPRESSION: No acute osseous abnormality. Electronically signed by: Lashell Peck MD (07/28/2021 6:04 PM) [facility] DICTATED AND SIGNED BY: LASHELL PECK MD DATE: 07/28/211802 CC: LOBITO FITZGERALD APRN; PCP,NO ~MTH0 0 (LOBITO FITZGERALD APRN) Heart Score: C/O Chest Pain: N/A Risk Factors: Risk Factors: DM, Current or recent (<one month) smoker, HTN, HLP, family history of CAD, obesity. Risk Scores: Score 0 - 3: 2.5% MACE over next 6 weeks - Discharge Home Score 4 - 6: 20.3% MACE over next 6 weeks - Admit for Clinical Observation Score 7 - 10: 72.7% MACE over next 6 weeks - Early Invasive Strategies (LOBITO FITZGERALD APRN) Course & Med Decision Making: Course & Med Decision Making Pertinent Labs and Imaging studies reviewed. (See chart for details) Patient presents to the emergency department today for left shoulder pain after carrying heavy grocery bags yesterday. Patient is tender along her biceps tendon, she does radiation of pain occasionally down her arm. X-ray performed to rule out fracture which showed no acute findings. Patient was treated with anti-inflammatory medications and a muscle relaxer. patient likely experiencing tendonitis. Patient advised to take anti-inflammatory medications and she will be discharged with steroid dose pack, advised to apply ice. sling provided. I discussed with patient all findings and diagnostic testing as well as the need to follow-up with PCP for further evaluation and treatment or return to the ER if any new or worsening symptoms. Strict return precautions were also discussed at length. Patient voiced understanding and agreement with the plan. Patient is hemodynamically stable at the time of disposition. (LOBITO FITZGERALD APRN) Dragon Disclaimer: Dragon Disclaimer: This electronic medical record was generated, in whole or in part, using a voice recognition dictation system. (LOBITO FITZGERALD APRN) Departure Departure: Impression: Primary Impression: Tendonitis Disposition: HOME / SELF CARE / HOMELESS Condition: GOOD Referrals: PCP,NO (PCP) Patient Instructions: Bicipital Tendonitis Additional Instructions: You are seen in the emergency department today for shoulder pain. An x-ray was performed that showed no acute findings. You can take anti-inflammatory medications at home for your pain. You are being discharged home with a steroid Dosepak. Also apply ice. A sling was provided for you to help with comfort. You can use this as needed. Follow-up with your primary care provider tomorrow regarding your ER visit. You may need to follow-up with an orthopedic physician if your pain continues. Return to the emergency department if you develop worsening of your pain any new injuries, decreased range of motion or decreased sensation in your extremity. Scripts Methylprednisolone (MEDROL) 4 Mg Tab.ds.pk 1 PKG PO UD for inflammation, #1 PKG 0 Refills Prov: LOBITO FITZGERALD APRN 07/28/21 Attending Signature Attending Signature I have participated in the care of this patient and I have reviewed and agree with all pertinent clinical information above including history, exam, and recommendations. (AMANDO MICHAEL MD) Dragon Disclaimer This chart was dictated in whole or in part using Voice Recognition software in a busy, high-work load, and often noisy Emergency Department environment. It may contain unintended and wholly unrecognized errors or omissions. (AMANDO MICHAEL MD) LOBITO FITZGERALD APRN Jul 28, 2021 17:19 AMANDO MICHAEL MD Jul 30, 2021 18:16
--- NOTE | 2021-07-28 18:07 | RAD ---
Exam: Left shoulder 3 views INDICATION: Shoulder pain, TECHNIQUE: Frontal view of the left shoulder with internal and external rotation and transscapular Y views Comparisons: None FINDINGS: Bone mineralization is normal. No acute or healed fractures. Soft tissues are unremarkable. Joint spa zuly are well-maintained. IMPRESSION: No acute osseous abnormality. Electronically signed by: Elroy Pinto MD (07/28/2021 6:04 PM) [facility]
[2021-07-28] MEDS ORDERED: METH4TAB2 PO (18:15)
== END 2021-07-28 18:53 | disposition home or self-care (01) ==
LOC: ER 16:54
DX: M77.8 Other enthesopathies, not elsewhere classified (principal); Z86.2 Personal history of diseases of the blood and blood-forming organs and certain disorders involving the immune mechanism; Z88.8 Allergy status to other drugs, medicaments and biological substances
CPT/HCPCS: 73030; 81025; 96372; 99284; J1885; J2360

== ENCOUNTER 2021-09-08 20:53 | Emergency (ER) | payer OTHER ==
[~2021-09-08] VITALS: Ht 167.6 cm; Wt 74.4 kg
[~2021-09-08 20:53] MED LIST changes: +METH4TAB2 PO
--- NOTE | 2021-09-08 21:10 | PHYS DOC ---
Past History Past Medical History: Anemia, Ovarian Cyst Past Surgical History: Tubal ligation, Other Additional Past Surgical Histo: wisdom teeth, ovarian cyst, uterine ablation Alcohol Use: None Drug Use: None General Adult EDM: Chief Complaint: CHEST PAIN HPI: HPI: ".. I ve been sick a while .. couple months. off and on. more constant a couple weeks. . fast heart rate.. dizzy... to day all day... " Patient is a 26 year old female who presents with above hx and complaints of chest pain, tachycardia, malaise, arthralgia, myalgia. Patient states she been having episodes of mid of tachycardia for the past 2 months. Has had more consistent symptoms this past week and today all day. Patient did not get flu vaccination or Covid vaccination. Does smoke. Patient normally follows with ? in [facility]. Review of Systems: Review of Systems: Constitutional: Subjective fever or chills Eyes: Denies change in visual acuity HENT: History of nasal congestion and postnasal drainage Respiratory: History of cough and chest pain with cough Cardiovascular: Complaints of central chest pain, tachycardia GI: Denies abdominal pain, nausea, vomiting, bloody stools or diarrhea : Denies dysuria Musculoskeletal: Denies back pain or joint pain Integument: Denies rash Neurologic: Denies headache, focal weakness or sensory changes Endocrine: Denies polyuria or polydipsia Lymphatic: Denies swollen glands Psychiatric: Denies depression or anxiety Family History: Family History: Noncontributory presentation Current Medications: Current Meds: See nursing for home meds Allergies: Allergies: Allergies Coded Allergies Type Severity Reaction Last Updated Verified ondansetron Allergy Unknown MIGRAINES 03/03/21 Yes Physical Exam: PE: Constitutional: Well developed, well nourished, moderate acute distress, non-t oxic appearance. [] HENT: Normocephalic, atraumatic, bilateral external ears normal, oropharynx moist, no oral exudates, nose normal. [] Eyes: PERRLA, EOMI, conjunctiva normal, no discharge. [] Neck: Normal range of motion, no tenderness, supple, no stridor. [] Cardiovascular: Tachycardia heart rate regular rhythm, no murmur [] Lungs & Thorax: Bilateral breath sounds equal apex with scattered wheezes on auscultation [] Abdomen: Bowel sounds normal, soft, no tenderness, no masses, no pulsatile masses. [] Skin: Warm, dry, no erythema, no rash. [] Back: No tenderness, no CVA tenderness. [] Extremities: No tenderness, no cyanosis, no clubbing, ROM intact, no edema. [] No cording appreciated Neurologic: Alert and oriented X 3, normal motor function, normal sensory function, no focal deficits noted. [] Psychologic: Affect normal, judgement normal, mood normal. [] EKG: EKG: My interpretation EKG shows a sinus rhythm at 91 bpm no acute morphology. No findings of STEMI of contralateral changes. Time of EKG is 2103 hrs. [] Radiology/Procedures: Radiology/Procedures: [][address] [address] IMAGING REPORT Signed PATIENT: KIMBERLY BRADY AACCOUNT: [id number] : 1995 LOCATION: ER AGE: 26 SEX: F EXAM STATUS: REG ER ORD. PHYSICIAN: AMANDO MICHAEL MD REASON: cp PROCEDURE: PORTABLE CHEST 1V Exam: Chest one view INDICATION: Chest pain TECHNIQUE: Frontal view of the chest Comparisons: 03/03/2021 FINDINGS: The cardiomediastinal silhouette and pulmonary vessels are within normal limits. The lung and pleural spaces are clear. IMPRESSION: No acute cardiopulmonary process. Electronically signed by: Lashell Peck MD (09/08/2021 9:46 PM) [facility] DICTATED AND SIGNED BY: LASHELL PECK MD DATE: 09/08/212145 CC: AMANDO MICHAEL MD; PCP,UNKNOWN ~ Heart Score: C/O Chest Pain: Yes HEART Score for Chest Pain: HEART Score for Chest Pain Response (Comments) Value History Slighlty/Non-Suspicious 0 ECG Normal 0 Age < 45 0 Risk Factors 1 or 2 Risk Factors 1 Troponin < Normal Limit 0 Total 1 Risk Factors: Risk Factors: DM, Current or recent (<one month) smoker, HTN, HLP, family history of CAD, obesity. Risk Scores: Score 0 - 3: 2.5% MACE over next 6 weeks - Discharge Home Score 4 - 6: 20.3% MACE over next 6 weeks - Admit for Clinical Observation Score 7 - 10: 72.7% MACE over next 6 weeks - Early Invasive Strategies Course & Med Decision Making: Course & Med Decision Making Pertinent Labs and Imaging studies reviewed. (See chart for details) Pt.left before 2nd Trop and EKG. Pt. offended she was in a King bed. Left before formal discharge. Impression: 1. Chest Pain 2. Dizzy 3. Anemia-microcytic hypochromic anemia hemoglobin 11.3 [] Dragon Disclaimer: Dragon Disclaimer: This electronic medical record was generated, in whole or in part, using a voice recognition dictation system. Departure Departure: Referrals: PCP,UNKNOWN (PCP) Dragon Disclaimer This chart was dictated in whole or in part using Voice Recognition software in a busy, high-work load, and often noisy Emergency Department environment. It may contain unintended and wholly unrecognized errors or omissions. Dragon Disclaimer This chart was dictated in whole or in part using Voice Recognition software in a busy, high-work load, and often noisy Emergency Department environment. It may contain unintended and wholly unrecognized errors or omissions. AMANDO MICHAEL MD Sep 08, 2021 21:10
[2021-09-08] MEDS ORDERED: IV RINGERS SOLUTION,LACTATED 1,000 ML IV SCH (21:15)
[2021-09-08 21:42] LABS: BASO # 0.1 x10^3/uL (0.0-0.2); BASO % 1 % (0-3); EOS # 0.4 x10^3/uL (0.0-0.7); EOS % 4 % (0-3); HEMATOCRIT 35.5 % (36.0-47.0); HEMOGLOBIN 11.3 g/dL (12.0-15.5); LYMPH # 2.3 x10^3/uL (1.0-4.8); LYMPH % 28 % (24-48); MEAN CORPUSCULAR HEMOGLOBIN 22 pg (25-35); MEAN CORPUSCULAR HGB CONC 32 g/dL (31-37); MEAN CORPUSCULAR VOLUME 69 fL (79-100); MONO # 0.5 x10^3/uL (0.0-1.1); MONO % 6 % (0-9); NEUT # 5.2 x10^3uL (1.8-7.7); NEUT % 61 % (31-73); PLATELET COUNT 206 x10^3/uL (140-400); RED BLOOD COUNT 5.15 x10^6/uL (3.50-5.40); RED CELL DISTRIBUTION WIDTH 16.1 % (11.5-14.5); WHITE BLOOD COUNT 8.5 x10^3/uL (4.0-11.0)
[2021-09-08 21:48] LABS: BARBITURATES NEG (NEG); BENZODIAZEPINES NEG (NEG); CANNABINOIDS NEG (NEG); COCAINE NEG (NEG); METHADONE NEG (NEG); OPIATES NEG (NEG); PHENCYCLIDINE NEG (NEG)
--- NOTE | 2021-09-08 21:49 | EKG ---
[address] [address] Test Date: 2021-09-08 Test Time: 21:08:47 Pat Name: KIMBERLY BRADY Department: Room: Gender: F [employer]: : 1995 Requested By: AMANDO MICHAEL Order Number: [id number] Reading MD: Measurements Intervals Nettie Rate: 91 P: 56 WI: 130 QRS: 26 QRSD: 80 T: 26 QT: 328 QTc: 405 Interpretive Statements SINUS RHYTHM NO SPECIFIC ECG ABNORMALITIES RI6.01 No previous ECG available for comparison
--- NOTE | 2021-09-08 21:49 | RAD ---
Exam: Chest one view INDICATION: Chest pain TECHNIQUE: Frontal view of the chest Comparisons: 03/03/2021 FINDINGS: The cardiomediastinal silhouette and pulmonary vessels are within normal limits. The lung and pleural spaces are clear. IMPRESSION: No acute cardiopulmonary process. Electronically signed by: Elroy Pinto MD (09/08/2021 9:46 PM) [facility]
[2021-09-08 21:51] LABS: AMPHETAMINE/METHAMPHETAMINE NEG (NEG); BACTERIA,URINE 0 /HPF (0-FEW); CLARITY,URINE CLEAR; COLOR,URINE YELLOW; GLUCOSE,URINE NEG (NEG); NITRITE,URINE NEG (NEG); RBC,URINE 0 /HPF (0-2); SQUAMOUS EPITHELIAL CELL,UR OCC /LPF; UROBILINOGEN,URINE 0.2 mg/dL (0.2 mg/dL); WBC,URINE 0 /HPF (0-4)
[2021-09-08 21:51] LABS: CALCIUM 8.7 mg/dL (8.5-10.1); CREATININE 0.7 mg/dL (0.6-1.0); GFR 100.4; POTASSIUM 3.5 mmol/L (3.5-5.1)
[2021-09-08 22:05] LABS: ALBUMIN 3.8 g/dL (3.4-5.0); DIRECT BILIRUBIN 0.1 mg/dL (0.0-0.2); MAGNESIUM 2.1 mg/dL (1.8-2.4); TOTAL BILIRUBIN 0.3 mg/dL (0.2-1.0)
[2021-09-08 22:45] LABS: INFLUENZA A PATIENT NEGATIVE (NEGATIVE); INFLUENZA B PATIENT NEGATIVE (NEGATIVE)
[2021-09-08] MEDS ORDERED: ACETAMINOPHEN 500 MG TABLET PO ONE (22:45)
[2021-09-08 23:00] VITALS: BP 128/76
[2021-09-08 23:20] LABS: U PREG PATIENT NEGATIVE (NEG)
== END 2021-09-08 23:50 | disposition left against medical advice (07) ==
LOC: ER 20:53
DX: D50.9 Iron deficiency anemia, unspecified (principal); R07.89 Other chest pain; R42 Dizziness and giddiness; Z20.822 Contact with and (suspected) exposure to COVID-19; Z86.2 Personal history of diseases of the blood and blood-forming organs and certain disorders involving the immune mechanism; Z88.8 Allergy status to other drugs, medicaments and biological substances
CPT/HCPCS: 36415; 71045; 80048; 80076; 80307; 81001; 81025; 82550; 83690; 83735; 83880; 84443; 84484; 85025; 85379; 85610; 85730; 87428; 93005; 96360; 99285; J7120